=== PATIENT | female | born 1980 | race Caucasian/White ===

== ENCOUNTER 2023-09-24 20:55 | Emergency (ER) | payer BC ==
[2023-09-24] MEDS ORDERED: Propofol 200 MG/20 ML SDV ONE (23:08)
== END 2023-09-25 00:39 | disposition home or self-care (01) ==
LOC: JP.ED 20:55
DX: S82.842A Displaced bimalleolar fracture of left lower leg, initial encounter for closed fracture (principal); Z79.899 Other long term (current) drug therapy; X50.9XXA Other and unspecified overexertion or strenuous movements or postures, initial encounter
CPT/HCPCS: 27810; 73600; 73610; 99283; J2704; 99156; 99157

== ENCOUNTER 2023-09-26 07:26 | Day surgery (SDC) | payer BC ==
[2023-09-26] MEDS ORDERED: fentaNYL 250 MCG/5 ML SDV ONE ×2 (07:48→10:28)
[2023-09-26] MEDS ORDERED: Ondansetron 4 MG/2 ML SDV ONE (07:49)
[2023-09-26] MEDS ORDERED: Succinylcholine 200 MG/10 ML MDV ONE (07:49)
[2023-09-26] MEDS ORDERED: Glycopyrrolate 0.2 MG/ML 5 ML MDV ONE (07:49)
[2023-09-26] MEDS ORDERED: Rocuronium 50 MG/5 ML Vial ONE (07:49)
[2023-09-26] MEDS ORDERED: Dexamethasone 4 MG/ML SDV ONE (07:49)
[2023-09-26] MEDS ORDERED: Propofol 200 MG/20 ML SDV ONE (07:49)
[2023-09-26] MEDS ORDERED: Neostigmine Methylsulfate 10 MG/10 ML MDV ONE (07:49)
[2023-09-26 07:55] LABS: HEMATOCRIT 36.3 % (34.3-46.0); HEMOGLOBIN 12.8 g/dL (11.2-15.5); MEAN CORPUSCULAR HEMOGLOBIN 31.2 pg (31.6-35.5); MEAN CORPUSCULAR HGB CONC 35.3 g/dL (31.6-35.5); MEAN CORPUSCULAR VOLUME 88.5 fL (81.4-99.0); RED BLOOD CELL COUNT 4.1 M/uL (3.77-5.24); WHITE BLOOD CELL COUNT,WBC 6.1 K/uL (3.2-11.0)
[2023-09-26 08:16] LABS: A/G RATIO 1.1 (1.2-2.2); ALANINE AMINOTRANSFERASE,ALT 22 U/L (12-78); ALBUMIN 3.4 g/dL (3.4-5.0); ALKALINE PHOSPHATASE 108 U/L (46-116); ASPARTATE AMNIOTRANSFERASE,AST 20 U/L (15-37); BILIRUBIN TOTAL 0.9 mg/dL (0.2-1.0); BLOOD UREA NITROGEN,BUN 7 mg/dL (7-18); CALCIUM 8.1 mg/dL (8.5-10.1); CARBON DIOXIDE,CO2 26 mmol/L (21-32); CHLORIDE,CL 103 mmol/L (100-108); CREATININE 0.6 mg/dL (0.6-1.0); EST CRCL DRUG DOSING (CG) 85.05 mL/min; ESTIMATED GFR 113 mL/min (>60); GLUCOSE RANDOM 88 mg/dL (74-106); POTASSIUM,K 3.4 mmol/L (3.6-5.2); PROTEIN TOTAL,TP 6.6 g/dL (6.4-8.2); SODIUM,NA 140 mmol/L (140-148)
[2023-09-26 08:17] LABS: ANION GAP 14.4 mmol/L (5.0-14.0)
[2023-09-26] MEDS: Lactated Ringers 1,000 ML IV SCH (08:17)
[2023-09-26] MEDS: Nozin Nasal Sanitizer NASBOTH ONE (08:19)
[2023-09-26] MEDS: ceFAZolin 1 GM in Premix Bag 1 BAG IV ONE (09:55)
[2023-09-26] MEDS: Bupivacaine 0.5% 30 ML SDV ONE (10:36)
[2023-09-26] MEDS ORDERED: Ketorolac 30 MG/ML SDV ONE (11:43)
[2023-09-26] MEDS ORDERED: Lactated Ringers 1,000 ML ONE (11:49)
[2023-09-26] MEDS: Acetaminophen/HYDROcodone 325-5 MG Tab PO PRN (13:17)
== END 2023-09-26 14:39 | disposition home or self-care (01) ==
LOC: JP.SDS 07:26
PROVIDERS: ATTEND Specialist
DX: S82.852A Displaced trimalleolar fracture of left lower leg, initial encounter for closed fracture (principal); E66.9 Obesity, unspecified; Y93.68 Activity, volleyball (beach) (court)
CPT/HCPCS: 01480; 27822; 36415; 80053; 84703; 85027; A9270; C1713; J0330; J0665; J0689; J1100; J1596; J1885; J2405; J2704; J2710; J3010; J7120; J3490